=== PATIENT | female | born 1965 | race Caucasian/White ===

== ENCOUNTER 2018-01-08 14:52 | Emergency (ER) | payer MEDICARE, MEDICAID ==
[~2018-01-08] VITALS: Ht 170.2 cm; Wt 82.8 kg
[2018-01-08] MEDS ORDERED: CLIN300C85 PO (15:52)
[2018-01-08 16:00] VITALS: BP 145/99
== END 2018-01-08 16:01 | disposition home or self-care (01) ==
LOC: ER 14:53
DX: L03.115 Cellulitis of right lower limb (principal); Z90.89 Acquired absence of other organs; Z98.51 Tubal ligation status
CPT/HCPCS: 99283

== ENCOUNTER 2019-04-11 16:48 | Emergency (ER) | payer MEDICARE, MEDICAID ==
[~2019-04-11] VITALS: Ht 170.2 cm; Wt 72.0 kg
[~2019-04-11 16:48] MED LIST: CLIN-90 PO
[2019-04-11] MEDS ORDERED: azithromycin 250mg tablet PO ONE (17:55)
[2019-04-11] MEDS ORDERED: diphenhydrAMINE 25mg capsule PO ONE (17:55)
[2019-04-11] MEDS ORDERED: naproxen 500mg tablet PO ONE (17:55)
[2019-04-11] MEDS ORDERED: NAPR-56 PO (18:00)
[2019-04-11] MEDS ORDERED: AZIT250T PO (18:00)
[2019-04-11] MEDS ORDERED: DIPH25CA83 PO (18:00)
[2019-04-11 18:37] VITALS: BP 138/61
== END 2019-04-11 18:10 | disposition home or self-care (01) ==
LOC: ER 16:48
DX: H66.92 Otitis media, unspecified, left ear (principal); Z98.51 Tubal ligation status; Z98.890 Other specified postprocedural states; Z79.2 Long term (current) use of antibiotics; Z79.899 Other long term (current) drug therapy
CPT/HCPCS: 99284; Q0163

== ENCOUNTER 2022-07-11 19:07 | Emergency (ER) | payer MEDICARE, MEDICAID ==
[~2022-07-11] VITALS: Ht 170.2 cm; Wt 81.8 kg
[~2022-07-11 19:07] MED LIST changes: -CLIN-90 PO; +CLIN-97 PO; +DIPH25CA83 PO
[2022-07-11 19:36] VITALS: BP 163/107
== END 2022-07-11 21:32 ==
LOC: ER 19:07
DX: S39.012A Strain of muscle, fascia and tendon of lower back, initial encounter (principal); G89.29 Other chronic pain; M54.9 Dorsalgia, unspecified; F17.200 Nicotine dependence, unspecified, uncomplicated; Z79.899 Other long term (current) drug therapy; X58.XXXA Exposure to other specified factors, initial encounter; Y93.89 Activity, other specified; Y92.89 Other specified places as the place of occurrence of the external cause; Y99.8 Other external cause status
CPT/HCPCS: 99281